=== PATIENT | female | born 1960 | race Hispanic/Latino ===

== ENCOUNTER → 2018-06-25 | Outpatient (CLI) | payer OTHER ==
[~2018-06-25] MED LIST: CARBINOXAMINE MA4 MG PO; CITALOPRAM HBR20 MG PO; TRIAMTERENE-HCTZ1 EA PO
--- NOTE | 2018-06-25 15:11 | Diagnostic Imaging Report ---
Exam: Right ankleCT without contrast. Right foot CT without contrast. History: Displaced fracture of the right tibia. Calcaneus fracture. Comparison:None Technique: Utilizing a 64-slice multidetector CT, axial imaging was performed through the right ankle and right foot without IV contrast. Multiplanar reformation was performed. All CT scans are performed using radiation dose reduction techniques. Technical factors are evaluated and adjusted to ensure appropriate moderation of exposure. Automated dose management technology is applied to adjust the radiation dose to minimize exposure while achieving a diagnostic-quality image. Findings: There is a comminuted intra-articular mid/anterior calcaneus fracture. The fracture extends to the inferior calcaneal cuboid articulation and to the mid/posterior talar articulation. Several adjacent bone fragments are seen. There is soft tissue swelling. There is an obliquely oriented fracture through the medial malleolus with minimal displacement. There is soft tissue swelling. There is an os perineum. There is an accessory navicular bone. Scattered vascular calcifications are seen. No radiopaque foreign body is seen. Mild scattered degenerative changes are seen about the ankle and foot. Impression: Comminuted intra-articular calcaneus fracture. Obliquely oriented medial malleolus fracture. Signed by: Dr. Bipin Weiss M.D. on 06/25/2018 3:08 PM
== END ==
LOC: CT 13:41
PROVIDERS: ATTEND Specialist
DX: S92.061A Displaced intraarticular fracture of right calcaneus, initial encounter for closed fracture (principal); S82.51XA Displaced fracture of medial malleolus of right tibia, initial encounter for closed fracture